=== PATIENT | female | born 1990 | race Caucasian/White ===

== ENCOUNTER 2024-06-05 05:35 | Observation (INO) ==
[~2024-06-05 05:35] MED LIST: Lidocaine 1% w EPI 1:200,000 SDV 30 ML VIAL ONE; NS 0.45% 1000 ml BAG 1,000 ML IV SCH; Naloxone 0.4 mg VIAL 0.4 mg/ml 1 ml VIAL IV PRN; Ondansetron 4 mg VIAL 2 MG/ML 2 ml VIAL IV PRN; ceFAZolin VIAL VIAL ONE; fentaNYL 100 mcg/2 ml 50 MCG/ML VIAL IV PRN
[2024-06-05] MEDS ORDERED: ceFAZolin 2 GM PREMIX 2 GM/50 ML BAG ONE (05:57)
[2024-06-05] MEDS ORDERED: Chlorhexidine MOUTHWASH 0.12% 15 ML UDC ONE (05:57)
[2024-06-05] MEDS ORDERED: Lidocaine 2% PF 5 ML VIAL ONE (06:12)
[2024-06-05] MEDS ORDERED: Phenylephrine IV 10 MG/ML 1 ml VIAL ONE (06:12)
[2024-06-05] MEDS ORDERED: Glycopyrrolate IV 0.2 MG/ML 1 ML VIAL ONE (06:12)
[2024-06-05] MEDS ORDERED: Ondansetron 4 mg VIAL 2 MG/ML 2 ml VIAL ONE (06:12)
[2024-06-05] MEDS ORDERED: Rocuronium 50 mg VIAL 10 mg/ml 5 ml VIAL (50 mg) ONE ×2 (06:12→08:09)
[2024-06-05] MEDS ORDERED: Dexamethasone IV 4 MG/ML VIAL 1 ml VIAL ONE (06:12)
[2024-06-05] MEDS ORDERED: Succinylcholine 200 mg VIAL 20 mg/ml 10 ml VIAL (200 mg) ONE (06:12)
[2024-06-05] MEDS ORDERED: Propofol 10 MG/ML 20 ML BTL ONE (06:12)
[2024-06-05 06:13] LABS: Rapid COVID-19 Molecular Undetected (Undetected)
[2024-06-05] MEDS ORDERED: Midazolam 2 mg/2 ml VIAL 1 mg/ml 2 ml VIAL (2 mg) ONE (06:13)
[2024-06-05] MEDS ORDERED: fentaNYL 100 mcg/2 ml 50 MCG/ML VIAL ONE ×2 (06:13→08:46)
[2024-06-05] MEDS ORDERED: Sevoflurane BOTTLE ONE (06:14)
[2024-06-05] MEDS ORDERED: Dextran 70/Hypromellose Tears Eye Drops 15 ml BTL (for Artificials Tears) BOTH EYES PRN (09:53)
[2024-06-05] MEDS ORDERED: Senna TAB 8.6 mg TAB PO PRN (09:53)
[2024-06-05] MEDS ORDERED: Calcium Carb (TUMS) 500 mg CHEW TAB PO PRN (09:53)
[2024-06-05] MEDS ORDERED: Ondansetron 4 mg VIAL 2 MG/ML 2 ml VIAL IV PRN (09:53)
[2024-06-05] MEDS: Lactated Ringers 1000 ml BAG 1,000 ML IV SCH ×2 (11:41→12:00)
[2024-06-05] MEDS: Buffered Lidocaine 1% SYRIN 1 ml INTRADERM ONE (12:51)
[2024-06-05] MEDS: Acetaminophen IV 1 GM/100ML 1,000 MG/100 ML BAG IV ONE (12:51)
[2024-06-06 09:56] VITALS: BP 110/60
[2024-06-06] MEDS: Benzocaine/Menthol LOZ MT PRN (11:08)
== END 2024-06-06 13:30 | disposition home or self-care (01) ==
LOC: INTOOBSV 05:35 → AA 05:35 → SSU 09:53
PROVIDERS: ADMIT Neurological Surgery; ATTEND Neurological Surgery